=== PATIENT | female | born 1995 | race Two or more races ===

== ENCOUNTER 2024-02-11 20:58 | Emergency (ER) | payer MEDICAID, SELFPAY ==
[2024-02-11 20:59] VITALS: BMI 26.5
[2024-02-11 21:58] VITALS: BP 114/83; PULSE 86; RESP 18; TEMP 37.3; O2SAT 100
--- NOTE | 2024-02-11 22:05 | EDNOTE_ITS ---
<Statement entered by Fidelina Aviles MD - 02/22/24 11:51> As co-signing physician, I was present and available for consult prn. I concur with the plan and care as documented by the midlevel provider. ED General RME/HPI General Chief complaint: General Adult/Misc Complain Stated complaint: NOT FEELING WELL Time Seen by Provider: 02/11/24 22:02 Source: patient Arrival date/time: 02/11/24 20:58 28-year-old female presents emergency department complaining of generalized weakness and bodyaches after donating plasma earlier today. Patient denies any fever, chills, nausea vomiting, chest pain, dysuria, or any other associated symptom. Mode of arrival: ambulatory Limitations: no limitations Related Data Allergies Allergy/AdvReac Type Severity Reaction Status Date / Time No Known Allergies Allergy Verified 02/12/23 17:29 Review of Systems Review of Systems Systems Reviewed: All systems reviewed, normal except as documented Constitutional Constitutional: Reports system reviewed and no additional complaints, except as documented, Reports body ache(s), Denies chills, Denies fever(s) and Reports weakness Eyes Eyes: Reports system reviewed and no additional complaints, except as documented and Denies change in vision ENT Ears, Nose, Mouth, and Throat: Reports system reviewed and no additional complaints, except as documented, Denies disequilibrium, Denies dizziness, Denies sore throat and Denies vertigo Cardiovascular Cardiovascular: Reports system reviewed and no additional complaints, except as documented, Denies chest pain and Denies dyspnea Respiratory Respiratory: Reports system reviewed and no additional complaints, except as documented, Denies chest congestion, Denies cough and Denies dyspnea Gastrointestinal Gastrointestinal: Reports system reviewed and no additional complaints, except as documented, Denies abdominal pain, Denies nausea and Denies vomiting Musculoskeletal Musculoskeletal: Reports system reviewed and no additional complaints, except as documented, Denies abnormal gait and Denies arthralgias Integumentary/Breasts Skin/Breast: Reports system reviewed and no additional complaints, except as documented, Denies erythema, Denies rash and Denies wounds Neurologic Neurologic: Reports system reviewed and no additional complaints, except as documented, Denies abnormal gait, Denies disequilibrium, Denies dizziness, Denies vertigo and Reports weakness Past Medical History Past Medical History NEUROLOGIC: Negative Neurological Disorders CARDIAC: Negative Cardiac Disorders or Congestive Heart Failure RESPIRATORY: Negative Chronic Obstructive Pulmonary Disease (COPD) GASTROINTESTINAL: Negative Gastrointestinal Disorders GENITOURINARY: Negative Genitourinary Disorders or Renal Disease REPRODUCTIVE: Negative Pelvic Inflammatory Disease MUSCULOSKELETAL: Negative Musculoskeletal Disorders ENDOCRINE: Negative Endocrine Disorders, Diabetes Mellitus Type 1 or Diabetes Mellitus Type 2 HEMATOLOGIC: Negative Blood Disorders OTHER HISTORY: Negative Autoimmune Disease, Anesthesia Reactions, Organ Transplant, MRSA, Clostridium Difficile or Cancer Family History FAMILY HISTORY: Negative Family Psychiatric Problems, Family Respiratory Disorders, Family Cardiac Disorders, Family Gastrointestinal Problems, Family Cancer, Family Surgery or Family Anesthesia Reaction Surgical History SURGICAL: Positive Abdominal Surgery; Negative Cardiac Surgery, Open Heart Surgery, Coronary Artery Bypass Graft, Valve Replacement, Vascular Surgery, Coronary Stent, Cardiac Catheterization, Pacemaker, Angiogram, Auto Implanted Cardiovert Defib, Carotid Endarterectomy, Endocrine Surgery, Ear Surgery, Nephrectomy, Joint Replacement, Neurologic Surgery, Section, Vasectomy or Organ Transplant Social History SMOKING STATUS: Never smoker ED Exam General Limitations: Present no limitations General appearance: Present alert and in no apparent distress Head Head exam: Present atraumatic Eye Eye exam: Present normal appearance, PERRL and EOMI ENT ENT exam: Present normal exam, normal oropharynx and mucous membranes moist Neck Neck exam: Present normal inspection, full ROM and trachea midline Chest Chest inspection: Present normal inspection and symmetric chest wall rise Respiratory Respiratory exam: Present normal lung sounds bilaterally Cardiovascular Cardiovascular exam: Present regular rate, normal rhythm and normal heart sounds Abdominal Exam Abdominal exam: Present soft and normal bowel sounds Extremities Exam Extremities exam: Present normal inspection and full ROM Back Exam Back exam: Present normal inspection and full ROM Neurological Exam Neurological exam: Present alert, oriented X3 and CN II-XII intact Psychiatric Psychiatric exam: Present normal affect and normal mood Skin Skin exam: Present warm, dry, intact and normal color Course Quality Measures none Orders Category Date Time Status Bedside COVID-19 Antigen Test NOW Care 02/11/24 22:05 Completed Bedside Influenza A&B Antigen Test NOW Care 02/11/24 22:05 Completed CBC Stat Lab 02/11/24 23:32 Completed CMP [Comprehensive Metabolic Panel] Stat Lab 02/11/24 23:32 Completed HCG,Qualitative Serum Stat Lab 02/11/24 23:32 Completed Vital Signs Vital signs: Vital Signs Temperature 99.1 F 02/11/24 21:58 Pulse Rate 86 02/11/24 21:58 Respiratory Rate 18 02/11/24 21:58 Blood Pressure 114/83 02/11/24 21:58 Pulse Oximetry (%) 100 02/11/24 21:58 Oxygen Delivery Method Room Air 02/11/24 21:58 100% room air within normal limits MDM Patient data External records reviewed:: [facility] previous records Clinical information provided by:: patient Social determinants that could affect healthcare access:: none Patient has the following chronic illnesses:: None How is presenting disease/condition affected by chronic disease/condition?: no chronic disease Evaluation data The following diagnostics were reviewed and interpreted by me:: lab results Lab and/or radiology exams considered but not ordered:: Ordered Interpretation Summary: Interpreted by me Medications Medications considered but not ordered:: N/A Medication administrations:: N/A Consultations Consultation(s) initiated? (list below): No Diagnosis Differential Diagnosis ED Complaint MDM: Viral infection, pneumonia, anemia, UTI Most likely diagnosis given after review of the tests above:: Viral infection Admission Indicated Admission indicated?: not indicated Explain why admission is indicated or not indicated:: No admission criteria Admission Request Was there a request for admission?: No Disposition Plan Disposition Plan: Discharge Discharge Attestation Discharge Attestation: The patient and all family members were given an opportunity to ask questions and understood the discharge instructions. Discharge instructions specifically effects, indications for sooner follow up or return to the emergency department, and the expected course of current diagnosis. Patient condition: Stable Medical Decision Making MDM Narrative MDM Narrative: 28-year-old female presents emergency department complaining of generalized weakness and bodyaches after donating plasma earlier today. Patient denies any fever, chills, nausea vomiting, chest pain, dysuria, or any other associated symptom. Patient's abdomen is soft and nontender. No adventitious lung sounds on auscultation. CBC and CMP were unremarkable. negative. Patient discharged instructed to follow-up primary care provider return to emergency department for any worsening symptoms or as needed Differential Diagnosis Differential Diagnosis: Viral infection, pneumonia, anemia, UTI Lab Data 02/11/24 23:32 02/11/24 23:32 Labs: Lab Results 02/11/24 Range/Units 23:32 WBC 11.3 H (3.6-11.0) Thou/mm3 RBC 5.13 (4.00-5.20) Miln/mm3 Hgb 14.7 (12.0-16.0) g/dL Hct 43.5 (36.0-46.0) % MCV 85 (80-100) fL MCH 28.7 (25.0-35.0) pg MCHC 33.8 (31.0-37.0) g/dl RDW Std Deviation 38.5 (36.4-46.3) fL Plt Count 319 (140-440) Thou/mm3 Neut % (Auto) 70 (37-80) % Lymph % (Auto) 23 (10-50) % Thayer % (Auto) 5 (0-12) % Eos % (Auto) 1 (0-10) % Baso % (Auto) 1 (0-2.5) % Neut # (Auto) 7.9 H (1.8-7.7) Thou/mm3 Lymph # (Auto) 2.6 (1.0-4.8) Thou/mm3 Thayer # (Auto) 0.6 (0.0-0.8) Thou/mm3 Eos # (Auto) 0.1 (0.0-0.5) Thou/mm3 Baso # (Auto) 0.1 (0.0-0.2) Thou/mm3 Immature Gran # (Auto) 0.04 H (0.00-0.00) Thou/mm3 Absolute Nucleated RBC 0.00 (0.00-0.00) Thou/mm3 Immature Gran % 0 (0-0) % Nucleated RBC % 0 (0) /100 WBC Sodium 141 (136-145) mMol/L Potassium 4.0 (3.4-5.1) mMol/L Chloride 105 (98-107) mMol/L Carbon Dioxide 27.6 (20.0-31.0) mMol/L Anion Gap 8 (7-16) BUN 11 (9-23) mg/dL Creatinine 0.6 (0.6-1.3) mg/dL Estim Creat Clear Calc 130.4 (>60) mL/min eGFR > 60 (60 - ) See Note BUN/Creatinine Ratio 18 (12-20) Ratio Glucose 107 H (74-106) mg/dL Calculated Osmolality 280 (275-295) Calcium 9.3 (8.3-10.6) mg/dL Corrected Calcium 9.3 (8.5-10.1) mg/dL Total Bilirubin 0.5 (0.3-1.2) mg/dL AST 19 (0-34) U/L ALT 17 (10-49) U/L Alkaline Phosphatase 87 (46-116) U/L Total Protein 6.3 (5.7-8.2) gm/dL Albumin 4.0 (3.5-5.0) gm/dL Globulin 2.3 (2.3-3.5) gm/dL Albumin/Globulin Ratio 1.7 (1.2-2.2) HCG, Qual Negative Discharge Plan Plan Patient Disposition: HOME (Self Care) Disposition Comment: Stable Prescriptions/Referrals Referrals: Wilian Loo MD [Primary Care Provider] - In 1 week Problem List Clinical Impression: Viral infection Patient/Caregiver Discharge Instructions Discharge Activity: activity as tolerated Education Materials: ED Viral Syndrome (Adult) Additional Instructions: Drink plenty of fluids and stay hydrated. Take Tylenol or ibuprofen as needed for pain. Follow-up with primary care provider in 24 to 48 hours. Return to the emergency department for any worsening symptoms or as needed. Print Language: [place] Stand Alone Forms: Marguerite Award Info., Patient Portal Info Letter PA/BONIFACIO Supervising Physician PA/BONIFACIO Supervising Physician: Dr. Aviles
[2024-02-11 23:50] LABS: Basophils # (Auto) 0.1 Thou/mm3 (0.0-0.2); Basophils % (Auto) 1 % (0-2.5); Eosinophils # (Auto) 0.1 Thou/mm3 (0.0-0.5); Eosinophils % (Auto) 1 % (0-10); Hematocrit 43.5 % (36.0-46.0); Hemoglobin 14.7 g/dL (12.0-16.0); Immature Granulocytes % (Auto) 0 % (0-0); Immature Granulocytes Auto 0.04 Thou/mm3 (0.00-0.00); Lymphocytes # (Auto) 2.6 Thou/mm3 (1.0-4.8); Lymphocytes % (Auto) 23 % (10-50); Mean Corpuscular HGB Conc 33.8 g/dl (31.0-37.0); Mean Corpuscular Hemoglobin 28.7 pg (25.0-35.0); Mean Corpuscular Volume 85 fL (80-100); Monocytes # (Auto) 0.6 Thou/mm3 (0.0-0.8); Monocytes % (Auto) 5 % (0-12); Neutrophils # (Auto) 7.9 Thou/mm3 (1.8-7.7); Neutrophils % (Auto) 70 % (37-80); Nucleated Red Blood Cell % 0 /100 WBC (0); Platelet Count 319 Thou/mm3 (140-440); RDW Standard Deviation 38.5 fL (36.4-46.3); Red Blood Count 5.13 Miln/mm3 (4.00-5.20); White Blood Count 11.3 Thou/mm3 (3.6-11.0)
[2024-02-12 00:04] LABS: HCG,Qualitative Serum Negative
[2024-02-12 00:11] LABS: Alanine Aminotransferase 17 U/L (10-49); Albumin/Globulin Ratio 1.7 (1.2-2.2); Alkaline Phosphatase 87 U/L (46-116); Anion Gap 8 (7-16); Aspartate Amino Transferase 19 U/L (0-34); BUN/Creatinine Ratio 18 Ratio (12-20); Bilirubin,Total 0.5 mg/dL (0.3-1.2); Blood Urea Nitrogen 11 mg/dL (9-23); Calcium 9.3 mg/dL (8.3-10.6); Calcium (Corrected) 9.3 mg/dL (8.5-10.1); Carbon Dioxide 27.6 mMol/L (20.0-31.0); Chloride 105 mMol/L (98-107); Creatinine (Component) 0.6 mg/dL (0.6-1.3); Estimated Creatinine Clearance 130.4 mL/min (>60); Globulin 2.3 gm/dL (2.3-3.5); Glucose 107 mg/dL (74-106); Osmolality,Calculated 280 (275-295); Sodium 141 mMol/L (136-145); Total Protein 6.3 gm/dL (5.7-8.2); eGFR > 60 See Note
[2024-02-12 00:28] VITALS: RESP 18
== END 2024-02-12 00:29 | disposition home or self-care (01) ==
PROVIDERS: Emergency Provider Emergency Medicine; PCP Family Medicine
DX: B34.9 Viral infection, unspecified (principal)
CPT/HCPCS: 36415; 80053; 84703; 85025; 87400; 87811; 99283

== ENCOUNTER 2024-10-06 22:44 | Observation (INO) | payer MEDICAID, SELFPAY ==
[2024-10-06 22:44] VITALS: BMI 30.2
[2024-10-06 23:03] VITALS: BP 110/59; PULSE 80; RESP 17; RESP 97; TEMP 36.9
== END 2024-10-06 23:59 | disposition home or self-care (01) ==
PROVIDERS: Admitting Provider Obstetrics & Gynecology; PCP Family Medicine; Visit Provider Obstetrics & Gynecology
DX: O26.892 Other specified pregnancy related conditions, second trimester (principal); Z3A.26 26 weeks gestation of pregnancy; R10.9 Unspecified abdominal pain
CPT/HCPCS: 59025; 59899

== ENCOUNTER 2024-11-16 11:27 | Observation (INO) | payer MEDICAID, SELFPAY ==
[2024-11-16 11:30] VITALS: BP 114/53; PULSE 76; RESP 16; RESP 98; TEMP 36.9; BMI 30.3
[2024-11-16 11:45] VITALS: BP 114/53; PULSE 76
[2024-11-16 13:19] LABS: Collection Type, Urine Clean Catch
[2024-11-16 13:53] LABS: FFN Specimen Descripton Clr Colrless Aqueous; Fetal Fibronectin Negative (Negative)
[2024-11-16 13:58] LABS: Bacteria,Urine Rare; Bilirubin,Urine 1+ (Negative); Blood,Urine Negative (Negative); Color,Urine Yellow (Lt Yel-Yel); Glucose, Urine Negative (Negative); Ketones,Urine Negative (Negative); Leukocyte Esterase,Urine Positive (Negative); Nitrite,Urine Negative (Negative); PH,Urine 6.5 (5.0-7.0); Protein,Urine Trace (Neg - Trace); RBC,Urine 2 /hpf (0-3); Specific Gravity,Urine 1.029 (1.001-1.035); Squamous Epithelial Cell,Urine 6 /hpf (0-5); Urobilinogen,Urine 4.0 mg/dL (0.0-1.0); WBC,Urine 20 /hpf (0-5)
[2024-11-16 14:03] LABS: Clarity,Urine Hazy (Clear/Hazy)
[2024-11-16] MEDS: NITROFURANTOIN MACRO 100 MG CAPSULE PO (14:42)
== END 2024-11-16 14:45 | disposition home or self-care (01) ==
PROVIDERS: Admitting Provider Specialist; Visit Provider Specialist
DX: O47.03 False labor before 37 completed weeks of gestation, third trimester (principal); Z3A.32 32 weeks gestation of pregnancy
CPT/HCPCS: 59025; 59899; 81001; 82731; A9270

== ENCOUNTER 2024-11-23 08:30 | Observation (INO) | payer MEDICAID, SELFPAY ==
[2024-11-23] VITALS (30 sets, daily range): BP systolic 102; BP diastolic 69; PULSE 70–81; RESP 20–99; TEMP 36.7; O2SAT 84–100; BMI 30.4
--- NOTE | 2024-11-23 08:55 | XR_ITS ---
Examination: Biophysical profile, ultrasound Date and time of exam: November 23, 2024, 10:30 AM INDICATIONS: Decreased movement today Technique: Multiple transabdominal sonographic images of the pelvis abdomen obtained. Attention is directed to the breathing movement, gross body movement, amniotic fluid volume and tone. Findings: Amniotic fluid index 9.1 cm Total biophysical profile is 8 of 8. breathing movement is 2. Gross body movement is 2. tone is 2. Qualitative amniotic fluid volume is 2 Impression: Biophysical profile is 8 of 8.
[2024-11-23] MEDS: BETAMET ACET/BETAMET NA PH (Celestone) 6 MG/ML VIAL 12 MG IM (09:48)
== END 2024-11-23 11:30 | disposition home or self-care (01) ==
PROVIDERS: Admitting Provider Specialist; Visit Provider Specialist
DX: O36.8130 Decreased fetal movements, third trimester, not applicable or unspecified (principal); Z3A.33 33 weeks gestation of pregnancy
CPT/HCPCS: 59025; 59899; 76819; 96372; J0702

== ENCOUNTER 2024-11-23 16:43 | Observation (INO) | payer MEDICAID, SELFPAY ==
[2024-11-23] VITALS (26 sets, daily range): BP systolic 131; BP diastolic 77; PULSE 90–118; RESP 20–98; TEMP 37.1; O2SAT 97–100; BMI 30.4
[2024-11-23] MEDS: TERBUTALINE SULF INJ 1 MG/ML VIAL 0.25 MG SC (17:20)
[2024-11-23] MEDS: ACETAMINOPHEN 500 MG TABLET 1000 MG PO (18:22)
== END 2024-11-23 18:52 | disposition home or self-care (01) ==
PROVIDERS: Admitting Provider Specialist; PCP Specialist; Visit Provider Specialist
DX: O47.03 False labor before 37 completed weeks of gestation, third trimester (principal); Z3A.33 33 weeks gestation of pregnancy
CPT/HCPCS: 59025; 59899; 96372; J3105; A9270

== ENCOUNTER 2024-11-24 09:05 | Outpatient (CLI) | payer MEDICAID, SELFPAY ==
[2024-11-24 09:11] VITALS: BP 113/57; PULSE 82
[2024-11-24 09:15] VITALS: BP 113/57; PULSE 82; RESP 16; RESP 98; TEMP 36.6; BMI 30.6
[2024-11-24] MEDS: BETAMET ACET/BETAMET NA PH (Celestone) 6 MG/ML VIAL 12 MG IM (09:33)
== END 2024-11-24 09:40 | disposition home or self-care (01) ==
LOC: S4S1 09:07 → S4SX 09:08
PROVIDERS: PCP Family Medicine; Referring Provider Specialist; Visit Provider Specialist
DX: Z34.90 Encounter for supervision of normal pregnancy, unspecified, unspecified trimester (principal); Z36.9 Encounter for antenatal screening, unspecified; Z3A.00 Weeks of gestation of pregnancy not specified
CPT/HCPCS: 59025; 96372; J0702

== ENCOUNTER 2024-12-03 21:30 | Observation (INO) | payer MEDICAID, SELFPAY ==
[2024-12-03] VITALS (13 sets, daily range): BP systolic 125; BP diastolic 69; PULSE 66–82; RESP 18–98; TEMP 36.6; O2SAT 98–99; BMI 31.0
== END 2024-12-03 22:47 | disposition home or self-care (01) ==
LOC: S4SX 21:33
PROVIDERS: Admitting Provider Specialist; Visit Provider Specialist
DX: O47.03 False labor before 37 completed weeks of gestation, third trimester (principal); O36.8130 Decreased fetal movements, third trimester, not applicable or unspecified; Z3A.34 34 weeks gestation of pregnancy
CPT/HCPCS: 59025; 59899

== ENCOUNTER 2024-12-04 21:24 | Observation (INO) | payer MEDICAID, SELFPAY ==
[2024-12-04] VITALS (32 sets, daily range): BP systolic 106–119; BP diastolic 56–68; PULSE 71–111; RESP 19–98; TEMP 36.9; O2SAT 82–100; BMI 30.4
[2024-12-04] MEDS: RINGERS LACTATED 1000 ML 1,000 ML 999 ML IV (23:00)
[2024-12-04] MEDS: TERBUTALINE SULF INJ 1 MG/ML VIAL 0.25 MG SC (23:50)
[2024-12-05] VITALS (221 sets, daily range): BP systolic 107–125; BP diastolic 55–78; PULSE 67–208; RESP 16–19; TEMP 36.8–36.9; O2SAT 82–100
--- NOTE | 2024-12-05 00:30 | XR_ITS ---
Examination: Complete OB ultrasound greater than 14 weeks Date and time of exam: December 05, 2024, 0112 hours INDICATIONS: pelvic contractions today Findings: Viable intrauterine single fetus with single amniotic sac presentation cephalic. Cardiac motion 167 bpm. Placenta anterior grade 2. Umbilical cord insertion and three-vessel seen. Amniotic fluid index 8.4 cm. Cervix 4.6 cm Ovaries obscured by the fetus. Composite estimated gestational age based on BPD, head circumference, abdominal circumference, femur length is 35 weeks 5 days Estimated weight 2872.7 g. Survey of intracranial anatomy, spinal anatomy, abdominal anatomy, four-chamber heart performed with no abnormalities identified. Impression: Viable intrauterine gestation in cephalic presentation.
[2024-12-05] MEDS: TERBUTALINE SULF INJ 1 MG/ML VIAL 0.25 MG SC ×2 (00:33→04:35)
--- NOTE | 2024-12-05 02:33 | PRELIM_ITS ---
Obstetric ultrasound with Doppler. December 05, 2024 0112 hours Clinical history: RANDALL Comparison: None available at the time of this report. Findings: There is a gravid uterus with a live fetus in cephalic presentation of mean gestational age 35 weeks and 5 days (by biometry). cardiac activity is present at a heart rate of 167 beats per minute. The placenta is anterior in location, maturity grade 2. There is no evidence of placenta previa or retroplacental hemorrhage. Amniotic fluid is adequate (MIN = 8.4 cm). Estimated weight is 2873 grams. The cervical length measures 4.6 cm. The ovaries are not visualized due to gestational age. No abnormalities by Doppler. Impression: Gravid uterus with a single live fetus in cephalic presentation of mean gestational age 35 weeks 5 days. Report Electronically Signed By: Efrem Cummins 12/05/2024 2:32:55 AM [EST]
[2024-12-05] MEDS: RINGERS LACTATED 1000 ML 1,000 ML 125 ML IV ×2 (06:04→14:12)
[2024-12-05] MEDS: Ampicillin Inj 2,000 MG in SODIUM CHLORIDE 0.9% (POP) 100 ML 200 MG IV ×3 (06:05→18:39)
--- NOTE | 2024-12-05 06:14 | PD.LDANTE ---
Documentation for date of: 12/05/24 OB Labor/Induct. HPI History of Present Illness : 5 Para: 3 Term pregnancies: 2 pregnancies: 1 Living children: 3 History of Abortions: Spontaneous and Elective: 1 History of Vaginal deliveries: 3 History of sections: No History of : No Date of last menstrual period: 04/05/24 GHISLAINE: 01/10/25 Gestational Age (weeks): 34 Gestational Age (days): 6 Gestational age based on last menstrual period: 34 History of present illness: H and P dictated on STAT line #9 in ance: [id number]. History of Present Adequate Care: Yes Past Medical History Surgical History SURGICAL: Negative Section Meds Home Medications and Allergies Home Medications ?Medication ?Instructions ?Recorded ?Confirmed ?Type ursodiol 300 mg capsule 300 mg PO TID 11/16/24 12/04/24 History hydroxyzine HCl 50 mg tablet 50 mg PO QDAY 11/23/24 12/04/24 History vitamins no.45-iron-FA 28 1 tab PO QDAY 11/23/24 12/04/24 History mg iron-1 mg chewable tablet Allergies Allergy/AdvReac Type Severity Reaction Status Date / Time No Known Allergies Allergy Verified 12/04/24 22:07 OB Exam Physical Exam Vital signs: Temp Pulse Resp BP Pulse Ox 98.4 F 90 19 121/64 100 12/04/24 21:44 12/05/24 05:56 12/04/24 21:44 12/05/24 05:56 12/05/24 06:13
--- NOTE | 2024-12-05 09:35 | ESHP_ITS ---
RE: YVONNE MICHELLE : 1995 DATE OF ADMISSION: 12/05/2024 HISTORY OF PRESENT ILLNESS: This is a 28-year-old 5, para 3-0-1-3 with due date of 01/10/2025 with intrauterine at 34 weeks and 6 days who presents to labor and delivery complaining of contractions. The patient denies any leaking or bleeding. She reports normal movement. Her care is complicated by cholestasis of for which she takes ursodiol. Her most recent bile acid level on 11/19/2024 was 31 with normal ALT and AST. She received betamethasone on 11/23/2024 and 11/24/2024 for threatened labor at that time. Ultrasound today shows estimated weight 2872 g with growth at the 82nd percentile. MIN is 8.4. Presentation is vertex. Cervical length is 4.6. Her white blood cell count is 11.3, hemoglobin is 14.7, platelets within normal limits. MEDICATIONS: 1. multivitamin 1 p.o. daily. 2. Hydroxyzine 25 mg 1 p.o. q.6 hours p.r.n. itching. 3. Ursodiol 500 mg 1 p.o. b.i.d. PAST MEDICAL HISTORY: Cholestasis of , preeclampsia, depression. The patient had cholestasis in her other 2 pregnancies and in her current pregnancies. FAMILY HISTORY: Daughter has tuberous sclerosis and was born with multiple cardiac rhabdomyomas. Mother has hypertension. OBSTETRICAL HISTORY: 2014, 37-week normal vaginal delivery, 7 pounds, 12 ounce male, complicated by cholestasis of . 01/2016, termination of with D and C, 6- week gestation. 09/2017, 37-week normal vaginal delivery, 7 pounds 4-ounce female, tuberous sclerosis, rhabdomyomas of heart delivered at [facility]. 2019, 36-week normal vaginal delivery, 6 pound 1 ounce female, complicated by cholestasis of . PAST SURGICAL HISTORY: Appendectomy and dilatation and curettage. REVIEW OF SYSTEMS: The patient has itching. She denies any chest pain, palpitations, shortness of breath, or lower extremity pain. PHYSICAL EXAMINATION: VITAL SIGNS: Blood pressure is 114/74, heart rate 88, respirations 18, temperature 98.6. HEENT: Oropharynx and sclerae are clear. LUNGS: Clear to auscultation bilaterally. HEART: Regular rate and rhythm. ABDOMEN: Gravid consistent with 35 weeks gestation. PELVIC: See RN notes. EXTREMITIES: Nontender. SKIN: No gross rashes or lesions. NEUROLOGIC: No focal deficit. ASSESSMENT: Intrauterine at 34 weeks and 6 days. Cholestasis of . Threatened labor. Status post betamethasone on 11/23/2024 and 11/24/2024. PLAN: Tocolysis with terbutaline, ampicillin for GBS prophylaxis, monitor for cervical change. Informed consent was obtained. The patient was made aware of the risks, complications, alternatives, and benefits of the proposed procedure. She agrees. DT: 06:03:47 TT: 06:33:00 Ref: [id number] - TID: [id number] MTDD
--- NOTE | 2024-12-05 14:14 | PC.NURSE ---
12/05/24: 1400: Called pharmacy. Ordered ursodiol not loaded in [facility]is medication machine. Per pharmacy they will bring it up to unit.
--- NOTE | 2024-12-05 14:37 | PC.NURSE ---
12/05/2024: 1435: Called pharmacy for ursodiol medication. Per pharmacy med is on way to unit.
== END 2024-12-05 19:20 | disposition home or self-care (01) ==
PROVIDERS: Admitting Provider Specialist; PCP Specialist; Visit Provider Specialist
DX: O26.643 Intrahepatic cholestasis of pregnancy, third trimester (principal); O47.03 False labor before 37 completed weeks of gestation, third trimester; Z3A.35 35 weeks gestation of pregnancy
CPT/HCPCS: 59025; 59899; 76805; 96365; J0290; J3105; J7120; A9270

== ENCOUNTER 2024-12-07 20:28 | Inpatient (IN) | payer MEDICAID, SELFPAY ==
[2024-12-07] VITALS (8 sets, daily range): BP systolic 121–138; BP diastolic 63–83; PULSE 65–77; RESP 16–99; TEMP 36.6–36.8; BMI 31.1
--- NOTE | 2024-12-07 09:30 | XR_ITS ---
Examination: Biophysical profile, ultrasound Date and time of exam: December 07, 2024, 0936 hours INDICATIONS: Diagnosis cholestasis of Technique: Multiple transabdominal sonographic images of the pelvis abdomen obtained. Attention is directed to the breathing movement, gross body movement, amniotic fluid volume and tone. Findings: Amniotic fluid index 12.3 cm Total biophysical profile is 8 of 8. breathing movement is 2. Gross body movement is 2. tone is 2. Qualitative amniotic fluid volume is 2 Impression: Biophysical profile is 8 of 8.
--- NOTE | 2024-12-07 12:40 | PD.LDHP ---
Documentation for date of: 12/07/24 OB Labor/Induct. HPI History of Present Illness : 5 Para: 3 Term pregnancies: 2 pregnancies: 1 Living children: 3 History of Abortions: Spontaneous and Elective: 1 History of Vaginal deliveries: 3 History of sections: No History of : No GHISLAINE: 01/10/25 Gestational Age (weeks): 35 Gestational Age (days): 1 History of present illness: H and P dictated on STAT #9 line in [facility] [id number] Past Medical History Surgical History SURGICAL: Negative Section Meds Home Medications and Allergies Home Medications ?Medication ?Instructions ?Recorded ?Confirmed ?Type ursodiol 300 mg capsule 300 mg PO TID 11/16/24 12/04/24 History hydroxyzine HCl 50 mg tablet 50 mg PO QDAY 11/23/24 12/04/24 History vitamins no.45-iron-FA 28 1 tab PO QDAY 11/23/24 12/04/24 History mg iron-1 mg chewable tablet Allergies Allergy/AdvReac Type Severity Reaction Status Date / Time No Known Allergies Allergy Verified 12/04/24 22:07 OB Exam Physical Exam Vital signs: Temp Pulse Resp BP 98.1 F 77 18 121/77 12/07/24 09:20 12/07/24 09:25 12/07/24 09:20 12/07/24 09:25
[2024-12-07] MEDS: RINGERS LACTATED 1000 ML 1,000 ML 100 ML IV ×2 (13:10→18:32)
--- NOTE | 2024-12-07 13:18 | ESHP_ITS ---
RE: YVONNE MICHELLE : 1995 DATE OF ADMISSION: 12/07/2024 HISTORY OF PRESENT ILLNESS: This is a 28-year-old 5, para 3-0-1-3 with due date of 01/10 with intrauterine at 35 weeks and 1 day who was referred to labor and delivery for biophysical profile and prolonged NST for a bile acid level that was revealed to me in the office today of 196. The patient has been having uncontrolled itching that has not responded to taking ursodiol at 500 mg p.o. b.i.d. The patient originally presented for care at 32 weeks. She has a history of cholestasis in all 3 of her prior pregnancies. She immediately reported itching and on 11/06 her bile acid level was 125. She was started on ursodiol at 300 mg b.i.d. She subsequently continued to have itching so her dosing was increased to 300 mg t.i.d. A repeat bile acid level on 11/19 came back 31 with normal SGOT and SGPT. Subsequently, the patient continued to have uncontrolled itching and her ursodiol dosing was increased to 500 mg p.o. b.i.d. Her bile acid level from 12/03 returned at 196. Patient denies any headache, change of vision, right upper quadrant pain. She denies any chest pain, palpitation, shortness of breath, or lower extremity pain. She has an ultrasound today showing a biophysical of 8 out of 8 with an MIN of 12. The ultrasound for estimated weight on 12/05 was 2872 g. She has a history of a daughter with tuberous sclerosis complex with rhabdomyomas of the heart. Her other 2 children were not affected. Her current has not shown any rhabdomyomas of the heart on multiple imaging. The patient's late to care has not allowed her access to maternal medicine in the . MEDICATIONS: 1. Ursodiol 500 mg 1 p.o. b.i.d. 2. Hydroxyzine 25 mg 1 p.o. q.6 hours p.r.n. itching. 3. vitamin 1 p.o. daily. PAST MEDICAL HISTORY: Cholestasis of , preeclampsia in a prior , depression. Patient has had cholestasis in all 4 of her pregnancies. FAMILY HISTORY: Daughter with tuberous sclerosis complex and was born with multiple cardiac rhabdomyomas. Mother has hypertension. OB HISTORY: 2014, 37-week normal vaginal delivery, 7 pound 12 ounce male, complicated by cholestasis of . 01/2016, termination of with D and C, 6- week gestation. 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 2019, 36-week normal vaginal delivery complicated by cholestasis of , 6 pound 1 ounce female. PAST SURGICAL HISTORY: Appendectomy and D and C for termination of . REVIEW OF SYSTEMS: The patient has generalized itching. She denies any chest pain, palpitation, shortness of breath, or lower extremity pain. PHYSICAL EXAMINATION: VITAL SIGNS: Blood pressure is 121/77, heart rate 88, respirations 18, temperature 98.6. BMI is 31. HEENT: Oropharynx and sclerae clear. LUNGS: Clear to auscultation bilaterally. HEART: Regular rate and rhythm. ABDOMEN: Gravid, consistent with estimated weight 2872 g. PELVIC: Per RN, 1.5 cm, 60%, -3, vertex, intact. EXTREMITIES: Nontender. SKIN: Multiple excoriations due to itching. NEUROLOGIC: No focal deficit. ASSESSMENT AND PLAN: Intrauterine at 35 weeks and 1 day, severe cholestasis of unresponsive to outpatient management with ursodiol, status post betamethasone on 11/23 and 11/24 for lung maturity. Plan, induction of labor. Ampicillin for group B strep prophylaxis. Ursodiol in labor. Anticipate spontaneous vaginal delivery. Informed consent was obtained, the patient was made aware of the risks, complications, alternative benefits of operative vaginal delivery and delivery and agrees with these modes of delivery if indicated. I consulted with Dr. Collier, maternal medicine at [facility], who agrees with proceeding with induction. I discussed the patient with our hospitalist power sewing machine operator at [facility] who is in agreement with management of the at [facility]. Patient was made aware of the nature of her condition and understands that her baby may require time in the NICU or possible transfer to a higher level of care after delivery. She agrees with delivery at [facility] and induction with the risks and complications of Cervidil , Cytotec and Pitocin. DT: 12:39:51 TT: 13:16:00 Ref: [id number] - TID: [id number] MTDD
[2024-12-07 13:34] LABS: Collection Type, Urine Clean Catch
[2024-12-07 13:42] LABS: Basophils # (Auto) 0.0 Thou/mm3 (0.0-0.2); Basophils % (Auto) 0 % (0-2.5); Eosinophils # (Auto) 0.0 Thou/mm3 (0.0-0.5); Eosinophils % (Auto) 1 % (0-10); Hematocrit 32.1 % (36.0-46.0); Hemoglobin 10.5 g/dL (12.0-16.0); Immature Granulocytes Auto 0.04 Thou/mm3 (0.00-0.00); Lymphocytes # (Auto) 1.2 Thou/mm3 (1.0-4.8); Lymphocytes % (Auto) 18 % (10-50); Mean Corpuscular HGB Conc 32.7 g/dl (31.0-37.0); Mean Corpuscular Hemoglobin 28.2 pg (25.0-35.0); Mean Corpuscular Volume 86 fL (80-100); Monocytes # (Auto) 0.3 Thou/mm3 (0.0-0.8); Monocytes % (Auto) 5 % (0-12); Neutrophils # (Auto) 4.8 Thou/mm3 (1.8-7.7); Neutrophils % (Auto) 75 % (37-80); Nucleated Red Blood Cell # 0.00 Thou/mm3 (0.00-0.00); Nucleated Red Blood Cell % 0 /100 WBC (0); Platelet Count 238 Thou/mm3 (140-440); RDW Standard Deviation 41.8 fL (36.4-46.3); Red Blood Count 3.72 Miln/mm3 (4.00-5.20); White Blood Count 6.3 Thou/mm3 (3.6-11.0)
[2024-12-07 13:48] LABS: Bilirubin,Urine Negative (Negative); Blood,Urine Negative (Negative); Clarity,Urine Clear (Clear/Hazy); Color,Urine Yellow (Lt Yel-Yel); Glucose, Urine Negative (Negative); Ketones,Urine Negative (Negative); Leukocyte Esterase,Urine Negative (Negative); Nitrite,Urine Negative (Negative); PH,Urine 5.5 (5.0-7.0); Protein,Urine Negative (Neg - Trace); RBC,Urine < 1 /hpf (0-3); Specific Gravity,Urine 1.010 (1.001-1.035); Squamous Epithelial Cell,Urine 3 /hpf (0-5); Urobilinogen,Urine Negative mg/dL (0.0-1.0); WBC,Urine 1 /hpf (0-5)
[2024-12-07 13:53] LABS: Alanine Aminotransferase 47 U/L (10-49); Albumin, Serum 3.9 gm/dL (3.5-5.0); Albumin/Globulin Ratio 1.6 (1.2-2.2); Alkaline Phosphatase 294 U/L (46-116); Anion Gap 11 (7-16); Aspartate Amino Transferase 34 U/L (0-34); BUN/Creatinine Ratio 12 Ratio (12-20); Bilirubin,Total 0.8 mg/dL (0.3-1.2); Blood Urea Nitrogen 6 mg/dL (9-23); Calcium 9.0 mg/dL (8.3-10.6); Calcium (Corrected) 9.1 mg/dL (8.5-10.1); Carbon Dioxide 24.0 mMol/L (20.0-31.0); Chloride 107 mMol/L (98-107); Creatinine (Component) 0.5 mg/dL (0.6-1.3); Estimated Creatinine Clearance 169.1 mL/min (>60); Globulin 2.5 gm/dL (2.3-3.5); Glucose 85 mg/dL (74-106); LDH (Lactate Dehydrogenase) 208 U/L (120-246); Osmolality,Calculated 279 (275-295); Potassium 3.5 mMol/L (3.4-5.1); Sodium 142 mMol/L (136-145); Total Protein 6.4 gm/dL (5.7-8.2); Uric Acid 4.9 mg/dL (3.1-7.8); eGFR > 60 See Note
[2024-12-07 13:59] LABS: INR 0.9 (0.9-1.3); Prothrombin Time 9.8 Seconds (9.0-12.2)
[2024-12-07 14:00] LABS: Partial Thromboplastin Time 24.3 Seconds (22.0-36.0)
[2024-12-07 14:04] LABS: Fibrinogen 690 mg/dL (175-375)
[2024-12-07 14:11] LABS: Syphilis Nonreactive (Nonreactive)
[2024-12-07] MEDS: PANTOPRAZOLE 20 MG TABLET PO (14:41)
[2024-12-08] VITALS (101 sets, daily range): BP systolic 108–155; BP diastolic 60–114; PULSE 56–94; RESP 16–23; TEMP 36.7–37.3; O2SAT 84–100
[2024-12-08] MEDS: RINGERS LACTATED 1000 ML 1,000 ML 100 ML IV (07:15)
[2024-12-08] MEDS: Ampicillin Inj 2,000 MG in SODIUM CHLORIDE 0.9% (POP) 100 ML 200 MG IV (07:50)
--- NOTE | 2024-12-08 09:47 | PD.LDPN ---
Documentation for date of: 12/08/24 OB Labor Progress Note Pain Control Comments: epidural Pelvic Exam Dilation (cm): 6.5 Effacement (%): 70 station: -2 Amniotic membrane status: Ruptured Comments: head well applied. thin mecondium stained amniotic fliud FSE applied. Contractions Monitor mode: External Contraction frequency: 2-3 Contraction intensity: Moderate Status status: Category ll Comments: Acceleration with tactile stimuation of scale and application of FSE Assessment and Plan Comments: Anticipate
[2024-12-08] MEDS: OXYTOCIN in NS 30 units 30 UNIT/500 ML BAG IV (10:28)
[2024-12-08] MEDS: Ampicillin Inj 1,000 MG in SODIUM CHLORIDE 0.9% (Popper) 50 ML 50 MG IV (10:50)
[2024-12-08] MEDS: TERBUTALINE SULF INJ 1 MG/ML VIAL 0.25 MG SC (12:19)
[2024-12-08] MEDS: ceFAZolin/D5W 2 GM IV 2 GM/100 ML BAG IV (12:40)
--- NOTE | 2024-12-08 12:48 | XR_ITS ---
Examination: Abdomen AP single view Technique: AP portable supine abdomen, single view Exam date and time: December 08, 2024, 1305 hours INDICATIONS: Missing instrument count FINDINGS: No opaque foreign body seen. Moderate stool in colon. IMPRESSION: No opaque foreign body seen.
[2024-12-08] MEDS: FAMOTIDINE INJ 10 MG/ML VIAL 2 ML 20 MG IV (13:29)
--- NOTE | 2024-12-08 13:32 | ESOP_ITS ---
Operative Note - ROVING CARRIER Procedure Date of procedure: 12/08/24 Procedure Performed: Primary low-transverse section via Fenistil skin incision Indication: Intrauterine at 35 weeks and 2 days Severe cholestasis of Induction of labor Meconium stained amniotic fluid Category 3 tracing Pre-Op diagnosis: Intrauterine at 35 weeks and 2 days Severe cholestasis of Induction of labor Meconium stained amniotic fluid Category 3 tracing Post-Op diagnosis: Intrauterine at 35 weeks and 2 days Severe cholestasis of Induction of labor Meconium stained amniotic fluid Category 3 tracing Anesthesia type: General Procedure description: In the operating room the patient was prepped and draped in a sterile fashion. She underwent induction of general anesthesia due to epidural anesthesia being inadequate and no time to bolus the epidural. A Pfannenstiel skin incision was made with the scalpel and carried through to the underlying layer of fascia with the Bovie. The fascia was nicked in the midline incision and the incision was extended bilaterally with the Bovie. The inferior aspect of the fascial incision was grasped with Vianney clamps elevated and the underlying rectus muscle d issected off with the Bovie. The superior aspect the fascial incision was grasped with Vianney clamps elevated and the underlying rectus muscle dissected off with the Bovie. The rectus muscles were in the midline. The peritoneum was grasped between 2 Sánchez clamps and entered sharply with the Metzenbaum scissors. The peritoneum was extended superiorly and inferiorly with good visualization of the bladder. The vesicouterine peritoneum was incised transversely and the bladder flap created digitally. A [place] blade was inserted. A low transverse incision was made in the uterus with a scapel and the incision was extended digitally. The 's head delivered and the mouth and nose were suctioned with the bulb suction. The shoulder and body delivered atraumatically. The was handed off to the waiting Pediatric staff, cord blood was collected for lab testing and cord blood gas was obtained. The placenta was removed complete and intact and saved to be transported to pathology. The uterus was exteriorized and cleared of all clots and debris. The uterus was initially atonic but responded to Pitocin and Methergine as well as TXA. Cytotec was additionally given before the patient was transferred to the recovery room at the end of the procedure. The uterine incision was closed with #1-0 chromic catgut suture in a running interlocking fashion. A second layer of the same suture was used to imbricate the first layer and obtain excellent hemostasis. The vesicouterine peritoneum was closed with 2-0 chromic catgut suture in a running fashion. The firm uterus was returned to the abdomen. The gutters were cleared of all clots and debris. The peritoneum was closed with 0 chromic catgut suture in running fashion. At this point the renal technician obtain abdominal pelvic films to look for retained foreign body as there was no preoperative instrument count. The wet reading appeared to show no abdominal or pelvic foreign body on the images. We proceeded to finish with the rectus muscle rectus muscle was closed with 0 chromic catgut suture. The fascia was closed with 0 Vicryl beginning at each angle and ending in the center in a running fashion. The subcutaneous tissue was irrigated with warmed normal saline solution and found to be hemostatic. The subcutaneous tissue was closed with 2-0 chromic catgut suture in a running fashion. The skin was closed with 4-0 Monocryl. A Dermabond Prineo dressing was applied and a sterile pressure dressing was applied.? She tolerated the procedure well. Counts were correct. She was reversed from general anesthesia in the supine position and transferred to the recovery room in stable condition. She tolerated the procedure well. I discussed with the patient and her family the nature of her condition, intraoperative findings and expectation for recovery all? questions answered. Fluids: crystalloid Fluid amount (mL): 3,000 Urine output (mL): 500 Specimen: other (Placenta) Estimated blood loss (ml): 900 Findings: Live female infant Apgars 9 and 9 Arterial cord pH 7.21 Meconium stained amniotic fluid Uterus atonic Ovaries and fallopian tubes grossly within normal limits Weight 2900 g Cephalic Occiput posterior Complications: other (Uterine atony) Narrative: Background Info: I was performing an operative vaginal delivery on another patient in the unit (Room 458) when I was notified by the charge nurse Che that my patient in room 452 Rachele Catsañeda was having prolonged and recurrent late decelerations. I asked her to have Dr. Greene evaluate the patient. I finished the operative vaginal delivery and subsequent placental delivery and then was proceeding with the vulvar - perineal repair when Dr. Greene approached me and let me know that she had given the patient terbutaline and the tracing was improved with resuscitative measures. As I was suturing the perineum and expected to be done within 10 to 15 minutes I thanked her and continued to finish my suturing. Within about 5 or 10 minutes Kaden RN came in the room and said that my patient was having recurrent late decelerations with decreased variability and she showed me the tracing on the computer screen. I ordered an emergency delivery. I finished my suturing within 5 minutes. I proceeded to go to room 452 and found Rachele Castañeda being prepped emergently for the delivery. Declaring a Category 3 tracing I immediately instructed the team to take the patient to the operating room. I explained to the patient the risks, complications, alternatives and benefits of the proposed procedure and she agreed to proceed with emergent delivery. I communicated with the pediatric nursery nurse and instructed the adaptive physical education specialist to be present at delivery as well as the respiratory therapist. I instructed the drafter heating and ventilating Jose Rafael Segura CRNA that the patient needed to undergo general anesthesia as we did not have time to bolus the epidural and she did not have adequate pain relief to start the surgery. Due to the stat nature of the procedure a sponge and instrument count was unable to be performed. However there was no foreign body seen on intraoperative Abdominal and Pelvic X Ray imaging by wet reading and official report by the Radiologist. Surgical staff Brittni Bonds. OTR FLATBED DRIVER KAREEM Vallejo Dr Surgeon Diagnosis Discharge Diagnosis (1) Encounter for induction of labor: Status: Acute (2) Meconium in amniotic fluid: Status: Acute (3) labor in third trimester with delivery: Status: Acute (4) Cholestasis of in third trimester: Status: Acute Problem List Completed Was Problem List Reviewed/Reconciled?: Yes (3) labor in third trimester with delivery Qualifiers: Fetus number: single or unspecified fetus Qualified Code(s): O60.14X0 - labor third trimester with delivery third trimester, not applicable or unspecified
[2024-12-08] MEDS: HYDROmorphone INJ 2 MG/ML VIAL 0.4 MG IVP (14:15)
[2024-12-08] MEDS: ACETAMINOPHEN IVPB 1,000 MG/100 ML VIAL 250 MG IV ×2 (14:16→20:04)
--- NOTE | 2024-12-08 14:49 | OBDSUM_ITS ---
Data (Ojeda) Data Hx Section: No : 5 Term: 2 : 1 Livin Abortions: Spontaneous & Theraputic: 1 Delivery Data (Ojeda) Labor Data Initiation of labor: Induction Induction/Augmentation Agent: Cervidil and Pitocin ROM date: 12/08/24 ROM time: 00:33 Amniotic membrane rupture type: Spontaneous Amniotic fluid description: Light Meconium Delivery Data EDC: 01/10/25 EDC calculated by:: LMP/early US confirmation Onset of labor date: 12/08/24 Onset of labor time: 06:40 delivery date: 12/08/24 Aurora delivery time: 12:45 Gestational age (weeks): 35 Gestational age (days): 2 Placenta delivery date: 12/08/24 Placenta delivery time: 12:46 Delivered by: DR LO Delivery nurse: Shahla ROWAN RN [place] nurse: Shahal ALICIA RN Life Skills Specialist at delivery: Yes Other staff at delivery: Aide ONTIVEROS automotive brake adjuster Method Delivery method: Low Transverse Presentation: Vertex position: OP Anesthesia Type Anesthesia Type: General and Epidural Anesthesia type: General Placenta Placenta delivery description: Manual Removal Placenta Disposition: Sent to Pathology Cord blood sent to lab: Yes cord blood collection: Cord Blood Type, Arterial Cord Blood Gas and Venous Cord Blood Gas Episiotomy Episiotomy description: None EBL Estimated blood loss (ml): 900 Umbilical Cord cord description: 3 Vessels Additional Procedures None Complications Complications: Uterine atony. Data (Ojeda) Aurora Data order: 1 Aurora's gender: Female weight (gms): 6 lb 6.294 oz Weight (pounds): 6 lbs and 6.3 ozs Aurora length: 20.5 in 1 minute: 9 5 minutes: 9
[2024-12-08 19:10] LABS: Basophils # (Auto) 0.0 Thou/mm3 (0.0-0.2); Basophils % (Auto) 0 % (0-2.5); Eosinophils # (Auto) 0.1 Thou/mm3 (0.0-0.5); Eosinophils % (Auto) 1 % (0-10); Hematocrit 29.1 % (36.0-46.0); Hemoglobin 9.9 g/dL (12.0-16.0); Immature Granulocytes Auto 0.04 Thou/mm3 (0.00-0.00); Lymphocytes # (Auto) 1.0 Thou/mm3 (1.0-4.8); Lymphocytes % (Auto) 8 % (10-50); Mean Corpuscular HGB Conc 34.0 g/dl (31.0-37.0); Mean Corpuscular Hemoglobin 28.8 pg (25.0-35.0); Mean Corpuscular Volume 85 fL (80-100); Monocytes # (Auto) 0.6 Thou/mm3 (0.0-0.8); Monocytes % (Auto) 5 % (0-12); Neutrophils # (Auto) 11.1 Thou/mm3 (1.8-7.7); Neutrophils % (Auto) 86 % (37-80); Nucleated Red Blood Cell # 0.00 Thou/mm3 (0.00-0.00); Nucleated Red Blood Cell % 0 /100 WBC (0); Platelet Count 220 Thou/mm3 (140-440); RDW Standard Deviation 41.2 fL (36.4-46.3); Red Blood Count 3.44 Miln/mm3 (4.00-5.20); White Blood Count 12.9 Thou/mm3 (3.6-11.0)
[2024-12-08] MEDS: ONDANSETRON INJ 2 MG/ML INJ 2 ML 4 MG IVP (21:15)
[2024-12-09] VITALS: BP 117/85; PULSE 70; RESP 18; TEMP 36.6; O2SAT 96
[2024-12-09] MEDS: OXYTOCIN in NS 20 units 20 UNIT/1,000 ML BAG 125 UNIT IV (01:19)
[2024-12-09] MEDS: ACETAMINOPHEN IVPB 1,000 MG/100 ML VIAL 250 MG IV (02:56)
[2024-12-09 04:13] VITALS: BP 124/77; PULSE 70; RESP 18; TEMP 36.9; O2SAT 97
--- NOTE | 2024-12-09 07:59 | ESPR_ITS ---
RE: YVONNE MICHELLE : 1995 DATE OF SERVICE: 12/09/2024 SUBJECTIVE: Post-op day #1. The patient denies any problem or complaints. She is voiding, she is ambulating, she is tolerating diet, she is passing flatus. She denies any excessive vaginal bleeding. She denies any dizziness or lightheadedness. She denies any chest pain, palpitation, shortness of breath, or lower extremity pain. SUBJECTIVE: Vital Signs: Blood pressure is 124/77, heart rate 70, respiration 18, temperature is 98.4, pulse ox is 97% on room air. Lungs: Clear to auscultation bilaterally. Heart: Regular rate and rhythm. Abdomen: Dressing dry and intact, fundus is firm. Extremities: Nontender. Hemoglobin pre-delivery is 10.5, post-delivery is 9.9. ASSESSMENT AND PLAN: Postop day #1, status post delivery. PLAN: 1. Remove dressing. 2. Discontinue IV 3. support. 4. Encourage ambulation. 5. Possible discharge home tomorrow. 6. Continue Actigall as needed for itching due to cholestasis. DT: 06:59:12 TT: 07:57:00 Ref: [id number] - TID: [id number]
[2024-12-09 08:20] VITALS: BP 108/66; PULSE 71; RESP 18; TEMP 37.1; O2SAT 98
[2024-12-09] MEDS: SIMETHICONE 80 MG CHEW PO ×2 (08:27→13:48)
[2024-12-09] MEDS: IBUPROFEN TAB 400 MG TABLET 800 MG PO ×2 (08:27→21:04)
[2024-12-09] MEDS: DOCUSATE SOD 100 MG CAPSULE PO (08:28)
[2024-12-09 11:00] VITALS: BP 96/62; PULSE 73; RESP 17; TEMP 37.2; O2SAT 96
--- NOTE | 2024-12-09 16:49 | ESDS_ITS ---
DS: Providers Provider Date of admission: 12/07/24 20:28 Primary care physician: Physician No Primary/Family Admitting Provider: Keo Zarate MD Attending Provider on Admission: Keo Zarate MD Consults: 12/08/24 14:06 Referral Routine Comment: Attending Provider on DC: Keo Zarate MD Discharging Provider: Keo Zarate MD DS: Diagnosis Problem List Completed Was Problem List Reviewed/Reconciled?: Yes Summary/Hosp Course Brief History: H and P dictated on STAT #9 line in Nuance [id number] Peripartum Data Delivery Method: Low Transverse Episiotomy Description: None Procedures: Procedures Operation Date: 12/08/24 12:45 Actual Procedure Side Surgeon p in OB Keo Zarate MD Time Spent with Patient Time attestation: Total time spent providing and/or coordinating discharge services: Exam Vital Signs Temp Pulse Resp BP Pulse Ox O2 Del Method 98.9 F 73 17 96/62 96 Room Air 12/09/24 11:00 12/09/24 11:00 12/09/24 11:00 12/09/24 11:00 12/09/24 11:00 12/09/24 11:00 Discharge Plan Plan Patient Disposition: HOME (Self Care) Patient condition on transfer: Stable Prescriptions/Referrals Prescriptions/Med Rec: New hydrocodone-acetaminophen 5-325 mg tablet 1 tab PO Q6H MDD 4 PRN (Reason: pain) Qty: 20 0RF No Action hydroxyzine HCl 50 mg tablet 50 mg PO QDAY Patient Comments: TAKE 1 TABLET BY MOUTH EVERY 6 HOURS DIRECTED FOR ITCHING vitamin no.45-iron-FA 28 mg iron- 1 mg tablet,chewable 1 tab PO QDAY ursodiol 300 mg capsule 500 mg PO BID Referrals: No Primary/Family,Physician [Primary Care Provider] Patient/Caregiver Discharge Instructions Discharge Activity: activity as tolerated Other Discharge Activity Instructions:: Follow up office 1 week. Education Materials: Storing Expressed Milk, Nutrition While , : Caring for Yourself, C Section Dc Print Language: [place] Activity Restrictions/Additional Instructions: follow up in office in one week. Stand Alone Forms: Marguerite Award Info., Patient Portal Info Letter Discharge Order Discharge Orders: Discharge (Routine); Ordered 12/10/24 Ordered By: Keo Zarate Planned Discharge Date 12/10/24
[2024-12-09 20:15] VITALS: BP 107/71; PULSE 79; RESP 16; TEMP 36.9; O2SAT 97
[2024-12-10 04:04] VITALS: BP 115/77; PULSE 63; RESP 14; TEMP 36.8; O2SAT 98
[2024-12-10] MEDS: HYDROcodone/APAP 5/325 TABLET 1 TAB PO (05:11)
[2024-12-10 07:57] VITALS: BP 115/77; PULSE 67; RESP 16; TEMP 36.7; O2SAT 98
[2024-12-10] MEDS: IBUPROFEN TAB 400 MG TABLET 800 MG PO (08:01)
[2024-12-10] MEDS: DOCUSATE SOD 100 MG CAPSULE PO (08:02)
--- NOTE | 2024-12-10 09:38 | ESPR_ITS ---
RE: YVONNE MICHELLE : 1995 DATE OF SERVICE: 12/10/2024 SUBJECTIVE: Post-op day 2. Patient denies any problem or complaint. She is voiding and ambulating and tolerating her diet and passing flatus. She denies any excessive vaginal bleeding. She denies any dizziness or lightheadedness. She denies any chest pain, palpitation, shortness of breath or lower extremity pain. She still has significant itching so she is continuing the ursodiol. OBJECTIVE: Vital Signs: Her vital signs are stable. She is afebrile. Lungs: Clear to auscultation bilaterally. Heart: Regular rate and rhythm. Abdomen: Incision clear and intact. Fundus is firm. Extremities: Nontender. ASSESSMENT AND PLAN: Postoperative day 2 status post delivery, cholestasis of . Continue ursodiol until itching resolved. Discharge home. Follow up in the office in 1 week. Discharge instructions given. DT: 09:29:06 TT: 09:36:00 Ref: [id number] - TID: [id number]
== END 2024-12-10 12:28 | disposition home or self-care (01) | DRG 540 ==
LOC: S4S1 20:28 → S4SX 20:29 → S4NX 12-08 13:49 → S4SX 12-10 06:43 → S4NX 12-10 06:43
PROVIDERS: Admitting Provider Specialist; Referring Provider Specialist; Visit Provider Specialist
PROC: 10D00Z1 Extraction of Products of Conception, Low, Open Approach (ICD-10-PCS; CPT 59514; principal; 2024-12-08 12:30)
DX: O26.643 Intrahepatic cholestasis of pregnancy, third trimester (principal); Z3A.35 35 weeks gestation of pregnancy; Z37.0 Single live birth; O62.2 Other uterine inertia; O77.0 Labor and delivery complicated by meconium in amniotic fluid; O76 Abnormality in fetal heart rate and rhythm complicating labor and delivery
CPT/HCPCS: 36415; 59025; 59409; 74018; 76819; 80053; 81001; 83615; 84550; 85025; 85384; 85610; 85730; 86780; 86850; 86900; 86901; 86923; 94762; A4217; A4314; A4649; J0131; J0290; J0689; J0690; J1171; J2250; J2274; J2405; J2590; J2704; J2795; J3010; J3105; J3490; J7050; J7120; S0191; A9270; J2270